=== PATIENT | female | born 1975 | race Caucasian/White ===

== ENCOUNTER 2024-09-06 12:19 | Inpatient (IN) | payer BC ==
[~2024-09-06] VITALS: Ht 167.6 cm; Wt 105.2 kg
[2024-09-06 13:17] LABS: EOSINOPHILS % 0.6 % (0.0-5.0); LYMPHOCYTES % 30.2 % (20.0-50.0); MEAN CORPUSCULAR HEMOGLOBIN 14.2 pg (28.0-32.0); MEAN CORPUSCULAR HGB CONC 26.6 g/dL (31.0-37.0); MEAN CORPUSCULAR VOLUME 53.3 fL (81.0-99.0); MEAN PLATELET VOLUME 8.6 fl (7.4-10.4); MONOCYTES % 8.6 % (2.0-8.0); NEUTROPHILS % 59.6 % (40.0-76.0); PLATELET 491 x1000/uL (130-400); RED BLOOD CELL COUNT 3.99 mill/uL (4.2-5.4); RED CELL DISTRIBUTION WIDTH 20.8 % (11.6-14.6); WHITE BLOOD COUNT 7.3 x1000/uL (4.5-11.0)
[2024-09-06 13:23] LABS: CHLORIDE 106 mEq/L (98-107); SODIUM 140 mEq/L (136-145)
[2024-09-06 13:24] LABS: CARBON DIOXIDE 23 mEq/L (21-32)
[2024-09-06 13:25] LABS: CALCIUM 9.5 mg/dL (8.7-10.4); DIFFERENTIAL COMMENT 1
[2024-09-06 13:30] LABS: CREATININE 0.6 mg/dL (0.6-1.0); GLUCOSE 122 mg/dL (70-105); UREA NITROGEN BLOOD 10 mg/dL (9-23)
[2024-09-06 13:32] LABS: ADD RBC MORPHOLOGY YES; HEMATOCRIT. 21.3 % (36.0-48.0); HEMOGLOBIN. 5.7 g/dL (12.0-16.0)
[2024-09-06 14:40] LABS: PLATELET ESTIMATE NORMAL
[2024-09-06 14:41] LABS: GIANT PLATELETS FEW
[2024-09-06 14:42] LABS: HYPOCHROMASIA 2+
[2024-09-06 14:43] LABS: ANISOCYTOSIS 1+; MICROCYTOSIS 3+; OVALOCYTES 2+
[2024-09-06 21:00] VITALS: BP 159/72; PULSE 76; RESP 18; TEMP 36.6
[2024-09-06 21:47] VITALS: BP 159/64; PULSE 98; RESP 22; TEMP 36.2; O2SAT 98
[2024-09-06] MEDS ORDERED: ACETAMINOPHEN 325MG TABLET PO PRN (23:00)
[2024-09-07] VITALS: BP 140/59; PULSE 75; RESP 22; TEMP 36.2; O2SAT 92
[2024-09-07 04:00] VITALS: BP 121/34; PULSE 86; RESP 20; TEMP 35.7; O2SAT 100
[2024-09-07 07:59] LABS: EOSINOPHILS % 0.9 % (0.0-5.0); HEMATOCRIT. 26.5 % (36.0-48.0); HEMOGLOBIN. 7.8 g/dL (12.0-16.0); LYMPHOCYTES % 31.3 % (20.0-50.0); MEAN CORPUSCULAR HEMOGLOBIN 17.8 pg (28.0-32.0); MEAN CORPUSCULAR HGB CONC 29.4 g/dL (31.0-37.0); MEAN CORPUSCULAR VOLUME 60.5 fL (81.0-99.0); MEAN PLATELET VOLUME 8.5 fl (7.4-10.4); MONOCYTES % 7.5 % (2.0-8.0); NEUTROPHILS % 59.3 % (40.0-76.0); PLATELET 472 x1000/uL (130-400); RED BLOOD CELL COUNT 4.37 mill/uL (4.2-5.4); RED CELL DISTRIBUTION WIDTH 31.7 % (11.6-14.6); WHITE BLOOD COUNT 8.9 x1000/uL (4.5-11.0)
[2024-09-07 08:00] VITALS: BP 132/46; PULSE 79; RESP 17; TEMP 36.4; O2SAT 97
[2024-09-07 08:03] LABS: CHLORIDE 106 mEq/L (98-107); POTASSIUM 3.7 mEq/L (3.5-5.1); SODIUM 141 mEq/L (136-145)
[2024-09-07 08:04] LABS: CALCIUM 8.9 mg/dL (8.7-10.4); CARBON DIOXIDE 24 mEq/L (21-32)
[2024-09-07 08:09] LABS: CREATININE 0.6 mg/dL (0.6-1.0); GLUCOSE 141 mg/dL (70-105); UREA NITROGEN BLOOD 11 mg/dL (9-23)
[2024-09-07 08:15] LABS: DIFFERENTIAL COMMENT 1
[2024-09-07] MEDS ORDERED: NON FORMULARY MED XX SCH ×2 (09:00)
[2024-09-07] MEDS: IRON SUCROSE COMPLEX 100 MG/5 ML ML IV SCH (10:46)
[2024-09-07 12:00] VITALS: BP 137/57; PULSE 82; RESP 17; TEMP 36.4; O2SAT 98
[2024-09-07 12:44] VITALS: BP 137/57; PULSE 82; TEMP 97.6; O2SAT 98
== END 2024-09-07 13:30 | disposition home or self-care (01) | DRG 812 ==
LOC: ER 12:19 → EDBEDREQ 15:00 → EDBEDREQTM 15:00 → ENRESERV 20:34 → 6WST 20:53
PROVIDERS: ADMIT Internal Medicine; ATTEND Internal Medicine
PROC: 30233N1 Transfusion of Nonautologous Red Blood Cells into Peripheral Vein, Percutaneous Approach (ICD-10-PCS; principal; 2024-09-06)
DX: D64.9 Anemia, unspecified (principal)
CPT/HCPCS: 36415; 76856; 80048; 85025; 86850; 86900; 86920; 99291; G0378; P9016